=== PATIENT | female | born 1945 | race Caucasian/White ===

== ENCOUNTER 2017-04-05 10:52 | Inpatient (IN) | payer OTHER, MEDICARE ==
[~2017-04-05] VITALS: Ht 170.2 cm; Wt 106.0 kg
[~2017-04-05 10:52] MED LIST: HYDACE5 PO; Hair, Skin & N1 EACH PO; TRAM50 PO
[2017-04-05 11:10] LABS: Calcium, Ionized (POC) 1.09 mmol/L (1.10-1.46); Chloride (POC) 106 mmol/L (98-108); Creatinine (POC) 1.2 mg/dL (0.6-1.0); Glucose (ISTAT POC) 502 mg/dL (70-99); Hemoglobin (POC) 12.2 g/dL (12.0-16.0); Sodium (POC) 141 mmol/L (135-148); Total CO2 (POC) 16 mmol/L (21-32)
[2017-04-05 11:34] LABS: Base Excess Venous -27.1 mmol/L; Bicarbonate Venous 6.4 mmol/L (24.0-30.0); PCO2 Venous 54.9 mmHg (38-42); PO2 Venous 205 mmHg (38-42); pH Blood Venous <6.80 (7.34-7.37)
[2017-04-05 11:42] LABS: Hematocrit 43.8 % (33.0-51.0); Hemoglobin 11.9 g/dL (11.5-16.0); Mean Corpuscular HGB 27.2 pg (26.0-34.0); Mean Corpuscular HGB Conc 27.2 g/dL (31.5-36.5); Mean Corpuscular Volume 100 fL (80-100); Mean Platelet Volume 10.2 fL (9.1-12.4); NRBC ABSOLUTE 0.05 K/mm3 (0.00-0.02); NRBC Auto 0.2 /100 WBC (0.0-0.2); Platelet Count 166 K/mm3 (150-400); RDW Coefficient Variation 13.5 % (11.7-14.2); RDW Standard Deviation 50.4 fL (35.1-46.3); Red Blood Cell Count 4.37 M/mm3 (3.80-5.20); White Blood Cell Count 23.81 K/mm3 (4.00-11.30)
[2017-04-05 11:53] LABS: Troponin I 0.438 ng/mL (0.000-0.040)
[2017-04-05 11:59] LABS: Albumin, Blood 2.1 g/dL (3.4-5.0); Albumin/Globulin Ratio 0.8 (0.8-1.8); Bilirubin, Total 0.2 mg/dL (0.1-1.0); Creatinine, Blood 1.11 mg/dL (0.40-1.00); Globulin, Blood 2.8 g/dL (2.2-4.0); Potassium, Blood 4.1 mmol/L (3.5-5.5); Total Protein, Blood 4.9 g/dL (6.4-8.2)
[2017-04-05 12:02] LABS: International Normalized Ratio 1.4; Prothrombin Time Results 14.7 Sec (9.7-11.5)
[2017-04-05 12:16] LABS: BAND PERCENT MAN 20 % (0-8); BASOPHILS PERCENT MAN 0 % (0-2); EOSINOPHILS ABSOLUTE MAN 0.23 K/mm3 (0.00-0.68); EOSINOPHILS PERCENT MAN 1 % (0-6); LYMPHOCYTES ABSOLUTE MAN 10.71 K/mm3 (0.84-5.20); LYMPHOCYTES PERCENT MAN 45 % (21-46); METAMYELOCYTE ABSOLUTE MAN 1.42 K/mm3 (0.00-0.00); METAMYELOCYTE PERCENT MAN 6 % (0-0); MONOCYTES PERCENT MAN 0 % (4-13); NEUTROPHILS ABSOLUTE MAN 11.42 K/mm3 (1.96-9.15); SEG NEUTROPHILS PERCENT MAN 28 % (41-73); TOTAL CELLS COUNTED 100
[2017-04-05 13:34] LABS: Source, Urine Catheter
[2017-04-05 13:43] LABS: Appearance, Urine Bloody (Clear); Blood, Urine 3+ (Neg); Color, Urine Red (P-Yellow); Glucose Qualitative, Urine 1+ (Neg); Ketones, Urine Neg (Neg); Leukocyte Esterase, Urine Neg (Neg); Nitrite, Urine Neg (Neg); Protein, Urine 4+ (Neg); Specific Gravity, Urine 1.015 (1.003-1.022); Urobilinogen, Urine NORM (Normal)
[2017-04-05 14:01] LABS: Bacteria Not Seen /hpf; Bilirubin, Urine 1+ (Neg); Red Blood Cells, Urine TNTC /hpf (0-2); Squamous Epithelial Cells Rare /hpf (Few)
[2017-04-05 14:36] LABS: Influenza A Negative (NEGATIVE); Influenza B Negative (NEGATIVE)
[2017-04-05 14:44] LABS: CPK Creatine Kinase 401 U/L (26-193)
[2017-04-05 15:48] LABS: PCO2 Arterial 44.2 mmHg (35-45); PO2 Arterial 80.7 mmHg (80-100); pH Blood Arterial 7.12 (7.35-7.45)
[2017-04-05 17:29] LABS: Hemoglobin 8.1 g/dL (11.5-16.0)
[2017-04-05 21:02] LABS: U Amphetamine Screen Not Detected; U Barbituate Screen Not Detected; U Benzodiazapine Screen Not Detected; U Buprenorphine Screen Not Detected; U Cannabinoids Screen Not Detected; U Cocaine Screen Not Detected; U Methadone Screen Not Detected; U Methamphetamine Screen DETECTED; U Opiates Screen Not Detected; U Oxycodone Screen Not Detected; U Phencyclidine Screen Not Detected; U Propoxyphene Screen Not Detected
[2017-04-06 03:58] LABS: BASOPHILS ABSOLUTE AUTO 0.13 K/mm3 (0.00-0.23); BASOPHILS PERCENT AUTO 0 % (0-2); Hematocrit 32.9 % (33.0-51.0); Hemoglobin 9.7 g/dL (11.5-16.0); LYMPHOCYTES ABSOLUTE AUTO 1.51 K/mm3 (0.84-5.20); LYMPHOCYTES PERCENT AUTO 4 % (21-46); MONOCYTES ABSOLUTE AUTO 1.46 K/mm3 (0.16-1.47); MONOCYTES PERCENT AUTO 4 % (4-13); Mean Corpuscular HGB 27.4 pg (26.0-34.0); Mean Corpuscular HGB Conc 29.5 g/dL (31.5-36.5); Mean Platelet Volume 9.7 fL (9.1-12.4); NRBC ABSOLUTE 0.07 K/mm3 (0.00-0.02); NRBC Auto 0.2 /100 WBC (0.0-0.2); Platelet Count 219 K/mm3 (150-400); RDW Coefficient Variation 13.8 % (11.7-14.2); RDW Standard Deviation 47.5 fL (35.1-46.3); Red Blood Cell Count 3.54 M/mm3 (3.80-5.20); White Blood Cell Count 40.44 K/mm3 (4.00-11.30)
[2017-04-06 04:11] LABS: EOSINOPHILS ABSOLUTE AUTO 0.01 K/mm3 (0.00-0.68); EOSINOPHILS PERCENT AUTO 0 % (0-6); IMMATURE GRAN ABSOLUTE AUTO 1.65 K/mm3 (0.00-0.10); IMMATURE GRAN PERCENT AUTO 4 % (0-1); Mean Corpuscular Volume 93 fL (80-100); NEUTROPHILS ABSOLUTE AUTO 35.68 K/mm3 (1.96-9.15); NEUTROPHILS PERCENT AUTO 88 % (41-73)
[2017-04-06 04:19] LABS: International Normalized Ratio 2.2; Prothrombin Time Results 23.4 Sec (9.7-11.5)
[2017-04-06 04:20] LABS: Magnesium, Blood 1.9 mg/dL (1.6-2.4)
[2017-04-06 04:40] LABS: Albumin, Blood 1.7 g/dL (3.4-5.0); Albumin/Globulin Ratio 0.8 (0.8-1.8); Bilirubin, Total 0.6 mg/dL (0.1-1.0); Bun/Creatinine Ratio 16.2 (12.0-20.0); Creatinine, Blood 1.6 mg/dL (0.40-1.00); Globulin, Blood 2.2 g/dL (2.2-4.0); Phosphorus, Blood 6.1 mg/dL (2.5-4.9); Potassium, Blood 4.1 mmol/L (3.5-5.5); Total Protein, Blood 3.9 g/dL (6.4-8.2); Troponin I 6.87 ng/mL (0.000-0.040)
[2017-04-06 05:00] LABS: PCO2 Arterial 47.3 mmHg (35-45); PO2 Arterial 88.3 mmHg (80-100)
[2017-04-06 05:01] LABS: pH Blood Arterial 7.05 (7.35-7.45)
[2017-04-06 05:17] LABS: Calcium, Blood 6.2 mg/dL (8.5-10.1)
[2017-04-06 09:44] LABS: PO2 Arterial 56.6 mmHg (80-100); pH Blood Arterial 6.92 (7.35-7.45)
[2017-04-06 12:13] LABS: Hematocrit 21.6 % (33.0-51.0); Hemoglobin 6.5 g/dL (11.5-16.0); Mean Corpuscular HGB 28.4 pg (26.0-34.0); Mean Corpuscular HGB Conc 30.1 g/dL (31.5-36.5); Mean Corpuscular Volume 94 fL (80-100); Mean Platelet Volume 10.4 fL (9.1-12.4); NRBC ABSOLUTE 0.14 K/mm3 (0.00-0.02); NRBC Auto 0.4 /100 WBC (0.0-0.2); Platelet Count 143 K/mm3 (150-400); RDW Coefficient Variation 13.9 % (11.7-14.2); RDW Standard Deviation 47.7 fL (35.1-46.3); Red Blood Cell Count 2.29 M/mm3 (3.80-5.20); White Blood Cell Count 34.61 K/mm3 (4.00-11.30)
[2017-04-06 12:34] LABS: Anion Gap 15 mmol/L (6-16); Blood Urea Nitrogen 17 mg/dL (8-24); Bun/Creatinine Ratio 16.5 (12.0-20.0); CO2, Blood 8 mmol/L (21-32); Chloride, Blood 127 mmol/L (98-108); Creatinine, Blood 1.03 mg/dL (0.40-1.00); Glomerular Filtration Rate 56 (60-); Glucose, Blood 147 mg/dL (70-99); Magnesium, Blood 1.1 mg/dL (1.6-2.4); Phosphorus, Blood 4.3 mg/dL (2.5-4.9); Potassium, Blood 4.1 mmol/L (3.5-5.5); Sodium, Blood 150 mmol/L (136-145)
[2017-04-06 12:43] LABS: Calcium, Blood <5.0 mg/dL (8.5-10.1)
[2017-04-06 13:18] LABS: BAND PERCENT MAN 5 % (0-8); BASOPHILS PERCENT MAN 0 % (0-2); EOSINOPHILS PERCENT MAN 0 % (0-6); LYMPHOCYTES ABSOLUTE MAN 2.07 K/mm3 (0.84-5.20); LYMPHOCYTES PERCENT MAN 6 % (21-46); MONOCYTES ABSOLUTE MAN 0.34 K/mm3 (0.16-1.47); MONOCYTES PERCENT MAN 1 % (4-13); NEUTROPHILS ABSOLUTE MAN 32.18 K/mm3 (1.96-9.15); SEG NEUTROPHILS PERCENT MAN 88 % (41-73); TOTAL CELLS COUNTED 100
== END 2017-04-06 13:23 | DRG 208 ==
LOC: ER 10:52 → ICUW 12:47
PROVIDERS: Emergency Medicine; Internal Medicine; Internal Medicine Critical Care Medicine
PROC: 5A1935Z Respiratory Ventilation, Less than 24 Consecutive Hours (ICD-10-PCS; principal; 2017-04-05)
PROC: 3E043XZ Introduction of Vasopressor into Central Vein, Percutaneous Approach (ICD-10-PCS; principal; 2017-04-05)
PROC: 5A12012 Performance of Cardiac Output, Single, Manual (ICD-10-PCS; principal; 2017-04-05)
PROC: 05HM33Z Insertion of Infusion Device into Right Internal Jugular Vein, Percutaneous Approach (ICD-10-PCS; principal; 2017-04-05)
DX: I26.99 Other pulmonary embolism without acute cor pulmonale (principal); D65 Disseminated intravascular coagulation [defibrination syndrome]; I46.8 Cardiac arrest due to other underlying condition; J96.00 Acute respiratory failure, unspecified whether with hypoxia or hypercapnia; K72.00 Acute and subacute hepatic failure without coma; R57.9 Shock, unspecified; E87.2 Acidosis; N17.9 Acute kidney failure, unspecified; I46.9 Cardiac arrest, cause unspecified; K21.9 Gastro-esophageal reflux disease without esophagitis; M19.90 Unspecified osteoarthritis, unspecified site; R31.9 Hematuria, unspecified; R31.0 Gross hematuria; R73.9 Hyperglycemia, unspecified
CPT/HCPCS: 31720; 36415; 36556; 36600; 51702; 71045; 71260; 76700; 76857; 80047; 80048; 80053; 81001; 82010; 82330; 82550; 82803; 82947; 83036; 83605; 83690; 83735; 83874; 84100; 84484; 85014; 85018; 85025; 85610; 85730; 87040; 87070; 87205; 87804; 92950; 93005; 93010; 93306; 94002; 94003; 94640; 96361; 96365; 96368; 96375; 99291; 99292; C1751; C9113; J0171; J0461; J0610; J1644; J1815; J2060; J2250; J2370; J2543; J2920; J3010; J3370; J7030; J7040; J7050; J7060; J7070; J7120; Q9967